=== PATIENT | male | born 1985 | race Caucasian/White ===

== ENCOUNTER 2024-06-24 23:22 | Emergency (ER) | payer SELFPAY ==
[~2024-06-24] VITALS: Ht 182.9 cm; Wt 90.7 kg
[2024-06-25 01:38] VITALS: BP 166/101; TEMP 99.1; O2SAT 100
[2024-06-25] MEDS ORDERED: CLIN300C12 PO (02:01)
== END 2024-06-25 02:14 | disposition home or self-care (01) ==
LOC: ER 23:25
DX: L03.011 Cellulitis of right finger (principal); F17.290 Nicotine dependence, other tobacco product, uncomplicated; Z88.2 Allergy status to sulfonamides

== ENCOUNTER 2024-07-06 09:23 | Emergency (ER) | payer MEDICAID ==
[~2024-07-06] VITALS: Ht 182.9 cm; Wt 98.0 kg
[~2024-07-06 09:23] MED LIST: CLIN300C12 PO
[2024-07-06 09:41] VITALS: BP 159/92; TEMP 98.6; O2SAT 98
[2024-07-06] MEDS ORDERED: CEPH500C2 PO (10:45)
[2024-07-06] MEDS ORDERED: IBUP-1490 PO (10:45)
== END 2024-07-06 10:55 | disposition home or self-care (01) ==
LOC: ER 09:30
DX: L60.0 Ingrowing nail (principal); L08.9 Local infection of the skin and subcutaneous tissue, unspecified; F17.290 Nicotine dependence, other tobacco product, uncomplicated; Z88.2 Allergy status to sulfonamides